=== PATIENT | female | born 1980 | race Caucasian/White ===

== ENCOUNTER 2019-10-07 13:49 | Day surgery (SDC) | payer MEDICARE, OTHER ==
[~2019-10-07] VITALS: Ht 165.1 cm; Wt 55.5 kg
[~2019-10-07 13:49] MED LIST: AMPYRA10 MG PO; COPAXONE20 MG SC; CYCLOBENZAPRINE10 MG PO; CYMBALTA60 MG PO; DETROL LA 4MG4 MG PO; DIAZEPAM5 MG PO; DILAUDID 4MG TAB4 MG PO; FLEXERIL 1010 MG/TAB PO; LIORESAL I500 MCG/ML IT; MULTIPLE VITAMI1 CAP PO; NEURONTIN300 MG/CAP PO; PROVIGIL200 MG PO; RANITIDINE150 MG PO; TOVIAZ8 MG PO; TYLENOL EXTRA500 M1 PO; VALTREX500 MG PO; VITAMIN C500 MG PO; VITAMIN D 400400 IU PO; ZANAFLEX CAPSULE4 MG PO
[2019-10-07 14:08] VITALS: BP 107/68; PULSE 100; TEMP 98.2
[2019-10-07] MEDS ORDERED: NEURONTIN300 MG/CAP PO (14:44)
[2019-10-07] MEDS ORDERED: LIORESAL20 MG PO (14:44)
[2019-10-07] MEDS ORDERED: FLEXERIL 1010 MG/TAB PO (14:44)
[2019-10-07] MEDS ORDERED: TOVIAZ8 MG PO (14:45)
[2019-10-07] MEDS ORDERED: CYMBALTA 60MG60 MG PO (14:45)
[2019-10-07] MEDS ORDERED: ZANAFLEX CAPSULE4 MG PO (14:46)
[2019-10-07] MEDS ORDERED: K-DUR 10 MEQ T10 MEQ PO (14:46)
[2019-10-07] MEDS ORDERED: TYLENOL 325MG325 MG PO (14:47)
[2019-10-07] MEDS ORDERED: ZANTAC 150MG T150 MG PO (14:47)
[2019-10-07] MEDS ORDERED: MULTIPLE VITAMI1 TA1 PO (14:47)
[2019-10-07] MEDS ORDERED: HAIRSKINNAILS PO (14:48)
[2019-10-07] MEDS ORDERED: VTAMINC250TA PO (14:48)
[2019-10-07] MEDS ORDERED: VITAMIN D32000 I1 PO (14:48)
[2019-10-07] MEDS ORDERED: NATURE'S BLEND600 M2 PO (14:49)
[2019-10-07] MEDS ORDERED: ZOFRAN 4MG T4 MG/TAB PO (14:49)
[2019-10-07] MEDS ORDERED: SOLU MEDROL IV (14:50)
[2019-10-07] MEDS ORDERED: AMPYRA10 MG PO (14:51)
[2019-10-07] MEDS ORDERED: [UNRECOGNIZED DRUG - OTHER] IV (14:52)
[2019-10-07 15:30] VITALS: BP 134/89; PULSE 93; TEMP 97.9
--- NOTE | 2019-10-07 15:30 | NUR ---
The patient arrived back to [facility] via cart at this time. The patient was left on the cart until she can be transferred back to her wheelchair for discharge. Post procedure vital signs were started at this time. The patient reports feeling cold and was given some fresh warm blankets at this time. The patient's was called to come be at her bedside. The patient denies any further needs at this time. Will continue to monitor the patient.
[2019-10-07 15:45] VITALS: BP 136/96; PULSE 94
--- NOTE | 2019-10-07 15:45 | NUR ---
The patient appears to be resting comfortably on the cart at this time. The patient's call light remains within reach. The patient's is at her bedside at this time. Will continue to monitor the patient.
[2019-10-07 16:00] VITALS: BP 132/91; PULSE 93
--- NOTE | 2019-10-07 16:00 | NUR ---
Dr. Elizabeth is present at the patient's bedside to speak with the patient and her regarding the results of the procedure. The patient agrees to try some white toast and apple juice at this time. Will continue to monitor the patient.
[2019-10-07 16:15] VITALS: BP 121/83; PULSE 94
--- NOTE | 2019-10-07 16:15 | NUR ---
The patient appears to be tolerating the food and drink well. Vital signs remain stable. Will continue to monitor the patient.
--- NOTE | 2019-10-07 16:30 | NUR ---
Discharge instructions were reviewed with the patient and her at this time. They both verbalized understanding and have no quesitons for the nurse at this time. The patient's IV to her right wrist was removed and a pressure dressing was applied to the site. The nurse is going to assist the patient to get dressed while her pulls the car up the entrance.
--- NOTE | 2019-10-07 16:45 | NUR ---
The patient was escorted out via her personal wheelchair to a private vehicle by SH[facility]. The patient's belongings and discharge paperwork were sent with her. The patient's is present to drive her home.
== END 2019-10-07 16:45 | disposition home or self-care (01) ==
LOC: SDCO 13:49
DX: R10.13 Epigastric pain (principal); R11.0 Nausea; R19.7 Diarrhea, unspecified; Z90.49 Acquired absence of other specified parts of digestive tract; K21.9 Gastro-esophageal reflux disease without esophagitis; K58.9 Irritable bowel syndrome, unspecified; F32.9 Major depressive disorder, single episode, unspecified; F41.9 Anxiety disorder, unspecified; G89.29 Other chronic pain; F17.210 Nicotine dependence, cigarettes, uncomplicated; G35 Multiple sclerosis; Z88.1 Allergy status to other antibiotic agents; Z88.5 Allergy status to narcotic agent; Z88.2 Allergy status to sulfonamides; D64.9 Anemia, unspecified
CPT/HCPCS: J2250; J2704; J3010; J7120

== ENCOUNTER 2023-09-07 12:49 | Day surgery (SDC) | payer MEDICARE, OTHER ==
[~2023-09-07] VITALS: Ht 165.1 cm; Wt 52.3 kg
[~2023-09-07 12:49] MED LIST changes: +CYMBALTA 60MG60 MG PO; +HAIRSKINNAILS PO; +K-DUR 10 MEQ T10 MEQ PO; +LIORESAL20 MG PO; +MASON NATURAL2000 IU PO; +MULTIPLE VITAMI1 TA1 PO; +NATURE'S BLEND600 M2 PO; +OCREVUS300 MG/10 IV; +SOLU MEDROL IV; +TYLENOL 325MG325 MG PO; +VTAMINC250TA PO; +ZANTAC 150MG T150 MG PO; +ZOFRAN 4MG T4 MG/TAB PO; +[UNRECOGNIZED DRUG - OTHER] IV
[2023-09-07 14:14] VITALS: BP 112/72; PULSE 91; TEMP 98.4
[2023-09-07 16:20] VITALS: BP 122/63; PULSE 92; TEMP 98.4
[2023-09-07 16:35] VITALS: BP 127/80; PULSE 94
[2023-09-07 16:40] VITALS: BP 117/77; PULSE 96
[2023-09-07 17:05] VITALS: BP 120/81; PULSE 92; TEMP 98.9
[2023-09-07 17:20] VITALS: BP 118/78; PULSE 92
--- NOTE | 2023-09-07 17:40 | NUR ---
1620 RETURNS TO ROOM 1 PER CART. AWAKE, ALERT. RESP UNLABORED. B AIR HUGGER ON. VITAL SIGNS OBTAINED. ABD SOFT. SUPRAPUBIC CATH IN PLACE. SITE WITHOUT DRAINAGE. URINE LIGHT RED CALL LIGHT AT SIDE. FRIEND IN ROOM 1635 TOLERATES PO JUICE WITHOUT NAUSEA 1650 B AIR HUGGER OFF. PATIENT EXPRESSES COMFORT 1700 DISCHARGE INSTRUCTIONS REVIEWED. PATIENT VERBALIZES UNDERSTANDING. COPY PROVIDED IN DISCHARGE FOLDER 1715 SITS ON EDGE OF BED. 175 ML LIGHT RED URINE EMPTIED FROM LEG BAG 1730 DRESSES WITH ASSIST FROM FRIEND
== END 2023-09-07 17:40 | disposition home or self-care (01) ==
LOC: SDCO 12:49
DX: N39.46 Mixed incontinence (principal); R35.0 Frequency of micturition; G35 Multiple sclerosis; R39.14 Feeling of incomplete bladder emptying; N30.20 Other chronic cystitis without hematuria; F17.210 Nicotine dependence, cigarettes, uncomplicated
CPT/HCPCS: A4215; C1769; J0585; J0690; J1100; J2405; J2704; J7120